=== PATIENT | male | born 1960 | race Caucasian/White ===

== ENCOUNTER → 2022-09-27 | Outpatient (CLI) | payer OTHER ==
--- NOTE | 2022-09-27 15:40 | CTL ---
EXAMINATION TYPE: CT Low Dose Lung DATE OF EXAM ORDERED: 09/27/2022 HISTORY: Z87.891 personal hx of tobacco use. Current smoker, 25 pack year history. Lung cancer screen ing CT DLP: [address] CTDI: 1.91 mGy Automated exposure control for dose reduction was used. SCREENING VISIT: First screening visit COMPARISON: None TECHNIQUE: Low dose computed tomography scan was performed through the chest at 1 mm thick sections a nd reconstructed images in multiple planes at 1 mm and [address] DIAGNOSTIC QUALITY: Satisfactory FINDINGS: LUNG NODULES: There are 2 intrafissural lymph nodes along the right minor fissure with the more anter ior one measuring 4 mm (series 4, image 147) and the more posterior one measuring 6 cm (series 4, morteza ge 141). LUNGS: COPD: Severity: None Fibrosis: Severity: None Lymph nodes: None Other findings: None RIGHT PLEURAL SPACE: Effusion: None Calcification: None Thickening: None Pneumothorax: None LEFT PLEURAL SPACE: Effusion: None Calcification: None Thickening: None Pneumothorax: None HEART: Heart Size: Normal Coronary Calcification: None Pericardial Effusion: None OTHER FINDINGS: Upper abdomen: Left renal cyst measuring 0.7 cm Bony thorax: None Supraclavicular region: None Other: Right chest well to be cardiac pacemaking device with leads terminating in the right ventricle and right atrium. IMPRESSION: No clinically significant pulmonary nodules. Couple of intrafissural lymph nodes along th e right minor fissure. CT LUNG RAD AND CT CHEST RECOMMENDATION: Lung-Rad 2 Benign Appearance or Behavior: Continue annual sc reening with LDCT in 12 months. S Modifier (other clinically significant findings): None
== END | disposition home or self-care (01) ==
LOC: RADCTMAIN 14:47
DX: Z12.2 Encounter for screening for malignant neoplasm of respiratory organs (principal); F17.210 Nicotine dependence, cigarettes, uncomplicated
CPT/HCPCS: 71271

== ENCOUNTER → 2023-10-17 | Outpatient (CLI) | payer OTHER ==
--- NOTE | 2023-10-18 12:23 | CTL ---
EXAMINATION TYPE: CT Low Dose Lung DATE OF EXAM ORDERED: 10/17/2023 HISTORY: 63-year-old male Z12.2 LUNG CA SCR F17.210 CURRENT SMOKER, 20 pack year history. Lung cancer screening CT DLP: 115.[address] CTDI: 3.0 mGy Automated exposure control for dose reduction was used. SCREENING VISIT: Annual follow-up COMPARISON: 09/27/2022 TECHNIQUE: Low dose computed tomography scan was performed through the chest at 1 mm thick sections a nd reconstructed images in multiple planes at 1 mm and [address] DIAGNOSTIC QUALITY: Satisfactory FINDINGS: Radiotracer chest wall Pacemaker Generator with Right Atrial and Right Ventricular Leads. The heart is normal size without pericardial effusion. 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 Conventional arch also branching anatomy. No thoracic lymphadenopathy by CT size criteria. Moderate emphysematous change. Mild diffuse bronchial wall thickening. Some mild strandy scarring or atelectasis in the lower lungs. No consolidation or pleural effusion. A couple anterior right mid lung pulmonary nodules measuring up to 6 mm, axial image 148 and 156 kishor in unchanged. No suspicious pulmonary nodules are identified. Tiny hiatal hernia. Visualized upper abdomen otherwise shows an exophytic cyst from the upper pole le ft kidney measuring up to 5.2 cm. Bones: Exaggerated thoracic kyphosis with mild to moderate degenerative disc disease. IMPRESSION: 1. LungRADS 2, benign. A couple pulmonary nodules measuring up to 6 mm on the right remain unchanged. 2. COPD with moderate emphysema. Recommend smoking cessation. 3. Unchanged mild aneurysm aortic root at 4.[address] LUNG RAD AND CT CHEST RECOMMENDATION: Lung-Rad 2 Benign Appearance or Behavior: Continue annual sc reening with LDCT in 12 months. S Modifier (other clinically significant findings): None
== END | disposition home or self-care (01) ==
LOC: RADCTMAIN 13:02
PROVIDERS: ATTEND Internal Medicine Pulmonary Disease
DX: Z12.2 Encounter for screening for malignant neoplasm of respiratory organs (principal); J43.9 Emphysema, unspecified; M51.34 Other intervertebral disc degeneration, thoracic region; K44.9 Diaphragmatic hernia without obstruction or gangrene; F17.210 Nicotine dependence, cigarettes, uncomplicated
CPT/HCPCS: 71271